=== PATIENT | female | born 1980 | race Caucasian/White ===

== ENCOUNTER 2025-08-30 15:55 | Emergency (ER) | payer BC, SELFPAY ==
--- OUTSIDE RECORDS SUMMARY | 2025-08-30 16:03 | XMS_ITS | Clinical Summary ---
Author Organization [facility] Address [address] [place] [address] Care Team Providers Care Corporate Statistical Financial Analyst Name Role Phone Shima Perez APRN-GEOMETRY TEACHER Unavailable [phone] Source Comments [facility],non-owned Affiliates and Associated Physician Practices is amultiple site organization consisting of ambulatory clinics and hospital sitesin [place], [place], [place] and [place]. This disclosure is being madepursuant to the Care Everywhere program and may not contain all information available regarding this patient. Last updated 18.[employer] [facility] Allergies No known active allergies Medications * Be aware that medications may not be up to date on this document. Alwaysverify current medications with the patient. vitamin 28-0.8 MG tablet Take 1 Tab by mouth daily. Active Cholecalciferol (VITAMIN D3) 400 UNITS tablet Take 400 Units by mouth once daily Active calcium carbonate (TUMS) 500 MG chew tablet Take 1 tablet by mouth daily with food Active pantoprazole EC (PROTONIX) 40 MG tabletIndication s:Supervision of high risk , antepartum (HCC),Gastroesop hageal reflux disease, esophagitis presence not specified Take 1 tablet by mouth once daily 30 tablet 3 01/30/2019 Active diclofenac sodium EC (Voltaren) 75 MG tablet Take 1 (one) tablet by mouth 2 times daily as needed with food 20 tablet 11/30/2022 Active Active Problems Problem Noted Date Diagnosed Date Depression with anxiety 10/17/2009 Herpes simplex 10/17/2009 Overview (10/17/2009): 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 Tobacco use disorder 10/17/2009 GERD (gastroesophageal reflux disease) 0 History of dilation and curettage 10/17/2009 Overview (10/17/2009): x2 Urinary tract infection 10/17/2009 History of delivery, currently 10/17/2009 Overview (10/17/2009): @36wk Hepatitis C virus infection without hepatic coma 10/17/2009 Overview (06/04/2015): HCV AB + 09/25/09 HCV Quant: 624,930 on 09/30/09 [id number]: 5.796 on 09/30/09 Anemia 10/17/2009 Hepatitis B no coma without hepatitis [employer]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 Of Dr. Reed in [place]. [facility] to [facility] - first appt scheduled 10/26/09. A+/ab screen neg/Im/-/- per acog on 03/10/09. NOW w/ HepA, B, C (see below) GCCT neg 09/24/09 GBS neg 09/24/09 History of drug abuse 07/23/2009 Overview (10/17/2009): Prior cocaine use; pt states they are currently in rehab Per outside records, documented cocaine use at 14 weeks of gestation Nondependent alcohol abuse, episodic drinking be havior 07/23/2009 Overview (07/23/2009): Pt stated to have a glass of wine once a day. Family History Medical History Relation Name Comments Hypertension Brother Cancer Mother Hypertension Mother Relation Name Status Comments Brother Alive Father Alive Mother Alive Sister Alive Social History Tobacco Use Types Packs/Day Years Used Date Smoking Tobacco: Every Day Cigarettes Smokeless Tobacco: Never Alcohol Use Standard Drinks/Week Comments Yes 0.8 (1 standard drink = 0.6 oz p ure alcohol) Comments No Sex and Gender Information Value Date Recorded Sex Assigned at Not on file Legal Sex Female 8:09 AM VALVE LAPPER Gender Identity Not on file Sexual Orientation Not on file Last Filed Vital Signs Vital Sign Reading Time Taken Comments Blood Pressure 146/92 04/18/2025 4:55 AM CDT Pulse 102 04/18/2025 4:55 AM CDT Temperature 36.7 C (98 F) 04/18/2025 4:55 AM CDT Respiratory Rate 18 04/18/2025 4:55 AM CDT Oxygen Saturation 100% 04/18/2025 4:55 AM CDT Inhaled Oxygen Concentration - - Weight 72.6 kg (160 lb) 04/18/2025 4:55 AM CDT Height 167.6 cm (5' 6) 04/18/2025 4:55 AM CDT Body Mass Index 25.82 04/18/2025 4:55 AM CDT Plan of Treatment Health Maintenance Due Date Last Done Comments COLOGUARD (AGES 45-75) - COLON CA SCREENING 1980 COLON MONITORING 1980 COLONOSCOPY - COLON CA SCREENING 1980 CT COLONOGRAPHY - COLON CA SCREENING 1980 Colorectal Cancer Screening 1980 FIT - COLON CA SCREENING 1980 FLEX SIG - COLON CA SCREENING 1980 LIPID TESTING 1980 MAMMOGRAM 1980 DTAP/TDAP/TD VACCINES (1 - Tdap) 1999 HEPATITIS B VACCINE (1 of 3 - 19+ 3-dose series) 1999 PNEUMOCOCCAL VACCINE (1 of 2 - PCV) 1999 PAP SMEAR 2001 HPV VACCINE (1 - 3-dose SCDM series) 2007 DEPRESSION SCREENING 09/04/2024 COVID-19 VACCINE (1 - season) 2025 INFLUENZA VACCINE (#1) 2025 ZOSTER VACCINE (1 of 2) 2030 HIV SCREENING Completed 10/08/2009 HEPATITIS C SCREENING Completed 01/30/2019 , 01/30/2019, 12/05/2018, Additional history exists HIB VACCINE Aged Out No longer eligi ble based on patient's age to complete this topic MENINGOCOCCAL (Group B) VACCINE SHARED DECISION-MAKING Aged Out No longer eligible based on patient's age to complete this topic MENINGOCOCCAL GROUPS A/C/Y/W VACCINE Aged Out No longer eligible based on patient's age to complete this topic Procedures Procedure Name Priority Date/Time Associated Diagnosis Comments HIV-1 HIV-2 ANTIBODY RAPID STAT 10/08/2009 5:16 PM VALVE LAPPER Screening NEC from Last 3 Months or Most Recently Relevant to Health Maintenance Results * HIV-1 HIV-2 ANTIBODY RAPID (10/08/2009 5:16 PM VALVE LAPPER) HIV-1/HIV-2 Rapid Antibody Nonreactive Nonreactive [facility] BLOOD SPECIMEN / Unknown 10/08/2009 5:16 PM VALVE LAPPER 10/08/2009 5:23 PM VALVE LAPPER Eileen Anthony MD LAB - CHEMISTRY ORDERABLES Fin al Result [facility] [address] [place] [address] from Last 3 Months or Most Recently Relevant to Health Maintenance Insurance [employer] [place] MEDICAID MEDICAID - OUT OF STATE Care Teams Corporate Statistical Financial Analyst Relationship Specialty Start Date End Date Shima Perez APRN-ADDY [address] [place] [address] PCP - Attributed-[employer] [place] 03/04/25
--- OUTSIDE RECORDS SUMMARY | 2025-08-30 16:03 | XMS_ITS | Continuity of Care Document ---
Author Name Isabel Cleveland Address [address] [place], [place] [id number] [place] [address] Organization Unknown Address [address] [place] [address] Medications No known medications Problems No known problems
--- OUTSIDE RECORDS SUMMARY | 2025-08-30 16:03 | XMS_ITS | Continuity of Care Document ---
Author Name Isabel Cleveland Address [address] [place], [place] [id number] [place] [address] Organization Unknown Address [address] [place], [place] [id number] [place] [address] Medications No known medications Problems No known problems
[2025-08-30 16:04] VITALS: BP 169/99; PULSE 120; RESP 20; TEMP 38.5; O2SAT 99
[2025-08-30 16:18] VITALS: TEMP 38.5
[2025-08-30] MEDS: ACETAMINOPHEN 500 MG TABLET 1000 MG PO (16:18)
[2025-08-30 16:24] LABS: EDCOVIDSCREEN Positive (Negative); EDINFLUASCREEN Negative (Negative); EDINFLUBSCREEN Negative (Negative)
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
== END 2025-08-30 16:41 | disposition home or self-care (01) ==
DX: U07.1 COVID-19 (principal); M54.40 Lumbago with sciatica, unspecified side; Z20.822 Contact with and (suspected) exposure to COVID-19; F90.9 Attention-deficit hyperactivity disorder, unspecified type; F41.9 Anxiety disorder, unspecified
CPT/HCPCS: 87426; 87804; 99213; A9270; G0463